=== PATIENT | male | born 1940 | race Caucasian/White ===

== ENCOUNTER 2016-12-26 09:01 | Outpatient (CLI) | payer MEDICARE, OTHER | END 2016-12-26 09:02 | disposition home or self-care (01) | DX: I48.91 Unspecified atrial fibrillation (principal) | CPT/HCPCS: 36415; 80053; 80061; 82043; 82570; G0103 ==

== ENCOUNTER 2023-04-19 08:19 | Emergency (ER) | payer MEDICARE, OTHER ==
[2023-04-19 08:40] VITALS: BP 146/65; O2SAT 96
--- NOTE | 2023-04-19 09:11 | ED Physician Documentation ---
History of Present Illness - Stated complaint Stated Complaint: MALE - Chief complaint Chief Complaint: General - History obtained from History obtained from: Patient - Additonal information Additional information: The patient comes to the emergency department chief complaint of "my suprapubic catheter came out". He states that he did not realize it had come out but while he was sitting watching TV, he put his hand down on his pant leg and noticed that it was wet. The patient states that he checked his catheter and saw that it had come out. He denies any bleeding. 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 The patient denies any fevers or chills. No abdominal pain. No other complaints at this time. PD PAST MEDICAL HISTORY - Allergies Allergies/Adverse Reactions: Allergies Allergy/AdvReac Type Severity Reaction Status Date / Time No Known Drug Allergies Allergy Verified 12/19/21 18:58 PD ED PE NORMAL - Vitals Vital signs reviewed: Yes - General General: Alert and oriented X 3, No acute distress, Well developed/nourished - HEENT HEENT: Atraumatic, PERRL, EOMI, Moist mucous membranes - Neck Neck: Supple, no meningeal sign - Respiratory Respiratory: No respiratory distress - Abdomen Abdomen: Soft, Non tender, Non distended, Other (Suprapubic catheter site is clean dry and intact. No urinary leakage or discharge of any other kind.) - Male Male : Other (Normal male genitalia. Balloon port is noted to have a tear at the base, where it inserts into the main catheter. The end of the catheter reveals a completely deflated balloon.) - Derm Derm: Warm and dry - Extremities Extremities: No deformity - Neuro Neuro: Alert and oriented X 3 - Psych Psych: Normal mood, Normal affect Results - Vitals Vitals: Vital Signs - 24 hr 04/19/23 08:33 Temperature 36.8 C Heart Rate 83 Respiratory 20 Rate Blood Pressure 146/65 H O2 Saturation 96 Oxygen O2 Source Room air Procedures - General procedure General procedure: A 20 Uzbek suprapubic catheter was replaced for the patient by EDMD. This was done sterilely, and other than mild bleeding around the ostomy site, no complications occurred during the procedure. Yellow, noncloudy urine was noted to flow freely from the catheter. The balloon was inflated with 10 cc of sterile saline and the catheter was attached to leg bag. Patient was comfortable during and after the procedure. PD Medical Decision Making - ED course Complexity details: considered differential, d/w patient ED course: The patient's suprapubic catheter was replaced as above. We have discussed that he should keep his follow-up appointment with urology in a couple of days for reevaluation. We discussed the usual indications for return. Departure - Departure Disposition: 01 Home, Self Care Clinical Impression: Encounter for suprapubic catheter care Condition: Stable Instructions: Catheter Suprapubic Care Dc Comments: Your suprapubic catheter has been replaced today. We could not get your normal size in, so we had to go 1 size down, to a size 20. You might have a little bit of bleeding around the site, but this should resolve on its own without difficulty. Please continue to care for your catheter as usually would, and please be sure you keep your appointment with your urologist for Thursday. Forms: PCP List Discharge Date/Time: 04/19/23 10:21
--- OUTSIDE RECORDS SUMMARY | 2023-04-19 10:18 | EXTERNAL MEDICAL SUMMARY RPT | Continuity of Care Document ---
Author Name Unknown Address [address] [place] [address] Phone Organization [facility] Address [address] [place] [address] Phone Care Team Providers Care Statistics Teacher Name Role Phone Kenneth Robb Unavailable Unavailable Allergies and Intolerances date description facility reaction severity (no date) [facility] (no reaction) (no se verity) Problems date description facility 2023-01-22 10:20 Other retention of urine [facility] 2023-01-22 10:[facility] Other cystostomy status [facility] 2023-01-22 11:05 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) [facility] 2023-01-22 23:50 Other retention of urine [facility] 2023-01-22 23:50 Retention of urine, unspecified [facility] 2023-01-22 23:50 Other cystostomy status [facility] 2023-02-19 09:51 Other retention of urine [facility] 2023-02-19 09:51 Retention of urine, unspecified [facility] 2023-02-19 09:51 Other cystostomy status [facility] 2023-02-19 11:30 Other retention of urine [facility] 2023-02-19 11:30 Retention of urine, unspecified [facility] 2023-02-19 11:30 Other cystostomy status [facility] 2023-02-19 11:32 Overflow incontinence [facility] 2023-02-19 11:32 Retention of urine, unspecified [facility] 2023-02-19 11:32 Other cystostomy status [facility] 2023-02-20 01:31 Overflow incontinence [facility] 2023-02-20 01:31 Retention of urine, unspecified [facility] 2023-02-20 01:31 Other cystostomy status [facility] 2023-02-20 13:29 Overflow incontinence [facility] 2023-02-20 13:29 Retention of urine, unspecified [facility] 2023-02-20 13:29 Other cystostomy status [facility] 2023-02-24 13:35 Overflow incontinence Located [facility] 2023-02-24 13:35 Retention of urine, unspecified [facility] 2023-02-24 13:35 Other cystostomy status [facility] 2023-03-20 11:47 Pulmonary hypertension, [facility] 2023-03-20 11:47 Chronic diastolic (congestive) heart failure [facility] 2023-03-20 11:47 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) [facility] 2023-03-20 14:31 Pulmonary hypertension, [facility] 2023-03-20 14:31 Chronic diastolic (congestive) heart failure [facility] 2023-03-20 14:31 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) [facility] 2023-03-24 10:39 Other retention of urine [facility] 2023-03-24 10:39 Retention of urine, [facility] 2023-03-24 10:39 Other cystostomy status [facility] 2023-03-24 11:04 Unspecified hydronephrosis [facility] 2023-03-24 11:04 Other retention of urine [facility] 2023-03-24 11:04 [facility] 11:04 Other cystostomy status [facility] 2023-03-25 00:45 Unspecified hydronephrosis [facility] 2023-03-25 00:45 Other retention of urine [facility] 2023-03-25 00:45 Retention of urine, unspecified [facility] 2023-03-25 00:45 Other cystostomy status [facility] 2023-03-25 13:43 Unspecified hydronephrosis [facility] 2023-03-25 13:43 Other retention of urine [facility] 2023-03-25 13:43 [facility]25 13:43 Other cystostomy status [facility] 2023-04-01 13:53 Unspecified hydronephrosis [facility] 2023-04-01 13:53 Other retention of urine [facility] 2023-04-01 13:53 Retention of urine, [facility] 2023-04-01 13:53 Other cystostomy status [facility] Procedures date description facility 2023-01-22 00:00 CT chest without contrast [facility] 2023-03-20 00:00 Complete Doppler echocardiograp [facility] Results/Labs test date facility value unit notes Social History date description facility 2023-01-22 00:00 Ex-smoker (finding) [facility] 2023-03-24 00:00 Ex-smoker (finding) [facility] Vital Signs date measurement value units 2023-01-22 00:00 heart_rate 80 /min 2023-01-22 00:00 o2_saturation 96 % 2023-01-22 00:00 respiration_rate 16 /min 2023-02-19 00:00 BP_diastolic 71 mmHg 2023-02-19 00:00 BP_systolic 121 mmHg 2023-02-19 00:00 heart_rate 76 /min 2023-03-24 00:00 BP_diastolic 74 mmHg 2023-03-24 00:00 BP_systolic 122 mmHg 2023-03-24 00:00 heart_rate 73 /min 2023-03-24 00:00 o2_saturation 96 % 2023-03-24 00:00 respiration_rate 16 /min
== END 2023-04-19 10:21 | disposition home or self-care (01) ==
LOC: ED 08:19
DX: T83.028A Displacement of other urinary catheter, initial encounter (principal)
CPT/HCPCS: 51701; 99281; 99282

== ENCOUNTER 2023-04-21 13:19 | Emergency (ER) | payer MEDICARE, OTHER ==
[2023-04-21] MEDS ORDERED: LIDOCAINE MPF 1%-EPI 1:200000 10 ML VIAL SUBQ STA (14:34)
[2023-04-21] MEDS ORDERED: LIDOCAINE 1%-EPI 1:100000 20 ML MDV SUBQ ONE (15:00)
--- NOTE | 2023-04-21 15:06 | ED Physician Documentation ---
History of Present Illness - Stated complaint Stated Complaint: LUMP ON LT LEG - Chief complaint Chief Complaint: Wound - History obtained from History obtained from: Patient - History of Present Illness Timing: Other (2 months) Pain level max: 0 Pain level now: 0 - Additonal information Additional information: 83-year-old male states that he bumped his left leg on a piece of furniture about 2 months ago, had localized swelling. Developed a small bump. This has become red and painful over the past few days. He saw his PCP who recommended that he come here as it may have developed into an abscess. No fevers. No chills. Worse with palpation. Nothing makes it better. Review of Systems Constitutional: denies: Fever, Chills GI: denies: Vomiting, Diarrhea PD PAST MEDICAL HISTORY - Past Medical History Past Medical History: Yes - Present Medications Home Medications: Ambulatory Orders Medication Instructions Recorded Confirmed cephALEXin [Keflex] 500 mg PO Q6H #28 cap 04/21/23 - Allergies Allergies/Adverse Reactions: Allergies Allergy/AdvReac Type Severity Reaction Status Date / Time No Known Drug Allergies Allergy Verified 04/21/23 13:27 - Social History Does the pt have substance abuse?: No - Family History Family history: reports: Non contributory PD ED PE NORMAL - Vitals Vital signs reviewed: Yes - General General: Alert and oriented X 3, No acute distress - HEENT HEENT: Moist mucous membranes - Derm Derm: Warm and dry - Extremities Extremities: Other (Left lower extremity - 2 x 2 centimeter erythematous fluctuant area to the left lateral calf, mid calf. Neurovascular intact) - Neuro Neuro: Alert and oriented X 3 - Psych Psych: Normal mood, Normal affect Results - Vitals Vitals: Vital Signs - 24 hr 04/21/23 04/21/23 13:27 15:24 Temperature 36.5 C Heart Rate 89 85 Respiratory 16 16 Rate Blood Pressure 152/64 H 150/78 H O2 Saturation 94 98 Oxygen O2 Source Room air - Labs Labs: Microbiology 04/21/23 15:00 Wound Culture - Preliminary Abscess Procedures - Abscess I&D (location) Left calf Preparation: Lidocaine 2%, With epi Incision: Incised with scalpel, Purulent drainage, Packed, Culture obtained Other: Pt tolerated well, Dressing applied, Antibiotic prescribed PD Medical Decision Making - ED course Complexity details: considered differential, d/w patient ED course: 83-year-old male with what appears to be infected hematoma, this was incised, drained, tolerated well. No complications. Wound culture sent. Will prescribe antibiotics for home as there is some surrounding cellulitis. We will have him follow-up with his PCP for further care. Patient counseled regarding signs and symptoms for which I believe and urgent re-evaluation would be necessary. Patient with good understanding of and agreement to plan and is comfortable going home at this time This document was made in part using voice recognition software. While efforts are made to proofread this document, sound alike and grammatical errors may occur. Departure - Departure Disposition: Home, Self Care Clinical Impression: Infected hematoma Condition: Good Instructions: ED Abscess IandD, ED Hematoma Follow-Up: Your,doctor in 3 to 4 days [Other] Prescriptions: cephALEXin [Keflex] 500 mg PO Q6H #28 cap Comments: It appears that your hematoma had become infected. A wound culture was sent. Please take all antibiotics until gone. Your prescription was sent to the [facility] pharmacy. Please follow-up with your doctor in 3 to 4 days for a wound check. Please leave the packing in place, if it does happen to come out that is okay. Forms: PCP List Discharge Date/Time: 04/21/23 15:26
[2023-04-21 15:29] VITALS: BP 150/78; O2SAT 98
== END 2023-04-21 15:26 | disposition home or self-care (01) ==
LOC: ED 13:19
DX: R22.42 Localized swelling, mass and lump, left lower limb (principal)
CPT/HCPCS: 10061; 87070; 87205

== ENCOUNTER 2023-07-02 06:41 | Day surgery (SDC) | payer MEDICARE, OTHER ==
[2023-07-02] MEDS ORDERED: LACTATED RINGERS 1,000 ML IV ONE (06:45)
[2023-07-02] MEDS: KETOROLAC 0.45% OPHTH DROPS ONE ×2 (06:46→07:00)
[2023-07-02] MEDS: CYCLOPENTOLATE 1% OPHTH DROPS 2 ML ONE ×2 (06:46→07:00)
[2023-07-02] MEDS: PROPARACAINE 0.5% OPHTH DROPS 15 ML ONE ×2 (06:46→07:00)
[2023-07-02] MEDS: PHENYLEPHRINE 2.5% OPHTH 2 ML DROPS ONE ×2 (06:46→07:00)
--- NOTE | 2023-07-02 07:06 | ANESTHESIA ---
Pre-Anesthesia VS, & Labs - Diagnosis L nuclear cataract - Procedure L extraction cataract wIOL Vital Signs: Temp Pulse Resp BP Pulse Ox O2 Flow Rate 36.3 C L 82 18 138/74 H 96 07/02/23 06:58 07/02/23 06:58 07/02/23 06:58 07/02/23 06:58 07/02/23 06:58 Height: 6 ft 2 in Weight (kg): 98 kg Body Mass Index: 27.7 BMI Classification: Overweight - NPO >8 hours - Lab Results Lab results reviewed: Yes Home Medications and Allergies Home Medications: Ambulatory Orders Calcium Citrate/Vitamin D3 [Citracal + D Maximum Caplet] 1 each PO DAILY 07/01/23 Furosemide [Lasix] 20 mg PO DAILY 07/01/23 Magnesium 250 mg PO DAILY 07/01/23 Spironolactone [Aldactone] 50 mg PO DAILY 07/01/23 Vit A/Vit C/Vit E/Zinc/Copper [Preservision Areds Softgel] 1 each PO BID 07/01/23 Warfarin [Coumadin] 5 mg PO DAILY 07/01/23 Calcium Citrate/Vitamin D3 [Citracal + D Maximum Caplet] 1 each PO DAILY 07/01/23 Furosemide [Lasix] 20 mg PO DAILY 07/01/23 Magnesium 250 mg PO DAILY 07/01/23 Spironolactone [Aldactone] 50 mg PO DAILY 07/01/23 Vit A/Vit C/Vit E/Zinc/Copper [Preservision Areds Softgel] 1 each PO BID 07/01/23 Warfarin [Coumadin] 5 mg PO DAILY 07/01/23 Allergies/Adverse Reactions: Allergies Allergy/AdvReac Type Severity Reaction Status Date / Time No Known Drug Allergies Allergy Verified 07/01/23 12:14 Anes History & Medical History - Anesthetic History Anesthesia Complications: reports: No previous complications Family history of Anesthesia Complications: Denies Family history of Malignant Hyperthermia: Denies - Medical History Cardiovascular: reports: Congestive heart failure, Hypertension, Atrial fibrillation, Arrhythmia Pulmonary: reports: None Gastrointestinal: reports: None Urinary: reports: Indwelling catheter Musculoskeletal: reports: Osteoarthritis Endocrine/Autoimmune: reports: None Skin: reports: None - Surgical History General: reports: Other Eyes Ears Nose Throat (EENT): reports: Tonsil/Adenoidectomy Urologic: reports: Bladder surgery Exam General: Alert, Oriented x3, Cooperative Dental: Poor dentition Mouth Openin Fingerbreadth Neck Mobility: Normal Mallampati classification: II Respiratory: Lungs clear, Normal breath sounds Cardiovascular: Other (AF) Neurological: Strength at 5/5 X4 ext Mental/Cognitive Status: Alert/Oriented X3, Normal for patient Cognitive Status: Within normal limits Plan Anesthesia Type: MAC Consent for Procedure(s) Verified and Reviewed: Yes Code Status: Attempt Resuscitation ASA classification: 3-Severe systemic disease Is this case an emergency?: No
[2023-07-02] MEDS ORDERED: MIDAZOLAM 2 MG/2 ML VIAL ONE (07:44)
[2023-07-02] MEDS ORDERED: BRIMONIDINE 0.2% OPHTH DROPS 5 ML ONE (07:51)
[2023-07-02] MEDS ORDERED: BSS/LIDOCAINE/EPINEPHRINE 1 ML VIAL ONE (07:51)
[2023-07-02] MEDS ORDERED: TRIAMCIN/MOXIFLOX OPHTHALMIC 0.6 ML VIAL IO ONE ×2 (07:51→08:08)
[2023-07-02] MEDS ORDERED: TIMOLOL 0.5% OPHTH DROPS ONE (07:51)
[2023-07-02] MEDS ORDERED: EPINEPHrine 1 MG/ML AMP ONE (07:51)
[2023-07-02] MEDS ORDERED: TIMOLOL 0.5% OPHTH DROPS OPTH ONE (08:07)
[2023-07-02] MEDS ORDERED: EPINEPHrine 1 MG/ML AMP IR ONE (08:07)
[2023-07-02] MEDS ORDERED: BRIMONIDINE 0.2% OPHTH DROPS 5 ML OPTH ONE (08:07)
[2023-07-02] MEDS ORDERED: PROPARACAINE 0.5% OPHTH DROPS 15 ML LEFTEYE ONE (08:08)
[2023-07-02] MEDS ORDERED: VANCOMYCIN OPHTH (TOPICAL) 10 MG/ML SYRINGE TOP ONE (08:08)
[2023-07-02] MEDS ORDERED: BSS/LIDOCAINE/EPINEPHRINE 1 ML SYRINGE IO ONE (08:08)
[2023-07-02] MEDS ORDERED: LACTATED RINGERS 800 ML IV ONE (08:20)
--- NOTE | 2023-07-02 08:25 | ANESTHESIA POST OP EVALUATION ---
Anesthesia Post Eval - Post Anesthesia Eval Vitals: Last Vital Signs Temp 36.3 C L 07/02/23 06:58 Pulse 82 07/02/23 06:58 Resp 18 07/02/23 06:58 BP 138/74 H 07/02/23 06:58 Pulse Ox 96 07/02/23 06:58 O2 Flow Rate CV Function Including HR & BP: Stable Nausea & Vomiting: Negative Respiratory Status: Airway Patent Anesthesia Complications: None
--- NOTE | 2023-07-02 08:28 | OPERATIVE REPORT ---
Operative Report - Other Other Information/Narrative: Date of Surgery: Preop Dx: Complex, visually significant cataract left eye. Complex due to small pupil requiring mechanical dilation using a Malyugin ring. This was the first cataract surgery. Postop Dx: Same Procedure: Phacoemulsification with posterior chamber intraocular lens implant left eye Surgeon: Dr. Rober Higgins Anesthesia: Monitored anesthesia care Complications: None Operative Indications: This is a 83-year-old M with progressive vision loss in the left eye due to 3+ nuclear sclerotic cataract. Best corrected visual acuity was 20/30 with glare to 20/60 vision in the left eye. Indications for surgery were: - Difficulty driving in low light or at night - Difficulty driving at night because of headlights from other vehicles - Difficulty with glare or bright lights in any situation The patient was consented at length concerning the risks and benefits of cataract surgery after which the patient expressed a desire to proceed with surgery. Operative Procedure: The patient was taken into OR#3 and placed under monitored anesthesia care. A surgical time-out was conducted confirming correct patient, correct procedure, and correct surgical site. The patient was given topical anesthesia and then prepped and draped in the usual sterile fashion. The eye was entered at the 6 and 3 oclock positions. Intracameral Shugarcaine was injected into the anterior chamber followed by a dispersive viscoelastic. A Malyugin ring was injected into the anterior chamber and engaged with the pupillary margin at four points to expand the pupil. A continuous-tear curvilinear capsulorhexis was performed. The nucleus was hydrodissected and phacoemulsified. The cortex was evacuated using automated infusion and aspiration. A cohesive viscoelastic was injected into the capsular bag and a 20.0 diopter intraocular lens was inserted into the bag. The Malyugin ring was disengaged from the pupillary margin and removed from the anterior chamber. Infusion and aspiration were used to evacuate the viscoelastic materials from the eye. The wounds were hydrated and the eye inflated to physiologic pressure using balanced salt solution. Approximately 0.25ml of a mixture of triamcinolone and moxifloxacin was injected trans-sclerally into the vitreous in the inferotemporal quadrant using a 30 gauge cannula. An additional 0.25ml of a mixture of triamcinolone and moxifloxacin was injected subconjunctivally in the superior quadrant for infection and inflammation prophylaxis. Wound integrity was checked with Weck-Jeanette sponges. The patient was taken from the operating room in good condition and given post-op instructions.
[2023-07-02 08:31] VITALS: BP 117/72; O2SAT 97
== END 2023-07-02 06:42 | disposition home or self-care (01) ==
LOC: SDS 06:41
PROVIDERS: ATTEND Ophthalmology
DX: H25.12 Age-related nuclear cataract, left eye (principal); I48.91 Unspecified atrial fibrillation; I11.0 Hypertensive heart disease with heart failure; I50.9 Heart failure, unspecified
CPT/HCPCS: 66982; A9270; J3490; J7120

== ENCOUNTER 2024-01-12 09:16 | Outpatient (CLI) | payer MEDICARE, OTHER ==
--- NOTE | 2024-01-12 12:42 | CT Report ---
PROCEDURE: Chest WO INDICATIONS: PLEURAL EFFUSION TECHNIQUE: A CT scan of the chest was performed. Intravenous contrast media was not administered. Images were re corded and evaluated at appropriate window settings. Reformats: axial MIP of the chest, coronal and s agittal. For radiation dose reduction, the following was used: automated exposure control, adjustment of mA and/or kV according to patient size. COMPARISON: CXR 01/21/2013. FINDINGS: Image quality: Diagnostic. Chest wall and lower neck: No thyroid nodule which requires sonographic follow up. No axillary or sup raclavicular adenopathy by size. Bilateral gynecomastia. Lungs and pleura: Mild right lower lobe dependent opacity which could represent compressive atelectas is. Central airways are clear. Mild bronchiectasis. Moderate right pleural effusion. Possible No left pleural effusion. No pneumothorax. -Left upper lobe juxta pleural pulmonary nodule measuring 1.9 x 1.1 cm, (2/38). -Right upper lobe juxta minor fissure pulmonary nodule measuring 0.4 cm, (4/60). -Right lower lobe pulmonary nodule measuring 0.3 cm/52). Mediastinum: Heart size is prominent. Three-vessel coronary artery calcifications. No pericardial eff usion. No large vessel abnormality. No mediastinal adenopathy by size criteria. Bones: No aggressive osseous abnormality. Upper Abdomen: Small granuloma at the right liver. No adrenal nodule. IMPRESSION: 1. Moderate right pleural effusion. The pleural effusion has a somewhat loculated appearance. This co uld represent empyema. 2. Mild opacity at the right lower lobe. Differential diagnosis includes compressive atelectasis or p neumonia. 3. Left upper lobe subpleural pulmonary nodule measuring 1.9 x 1.1 cm. Indeterminate. -Recommend comparison with more remote imaging if available. PET/CT could also be considered for furt her evaluation. Reviewed by: Martinez Rodgers MD on 01/12/2024 12:41 PM PDT Approved by: Martinez Rodgers MD on 01/12/2024 12:41 PM PDT Station ID: [id number]
== END 2024-01-12 09:17 | disposition home or self-care (01) ==
LOC: DI 09:16
PROVIDERS: ATTEND Internal Medicine Critical Care Medicine
DX: J90 Pleural effusion, not elsewhere classified (principal); R91.8 Other nonspecific abnormal finding of lung field